=== PATIENT | male | born 1935 | race Caucasian/White ===

== ENCOUNTER 2018-04-06 04:11 | Emergency (ER) | payer OTHER ==
[~2018-04-06] VITALS: Ht 175.3 cm; Wt 88.9 kg
[~2018-04-06 04:11] MED LIST: CALCIUM 500 +1 EAC5 PO; COUMADIN5 M2 PO; GLUCOPHAGE500 M1 PO; LEXAPRO10 M1 PO; LIALDA1.2 G1 PO; LIPITOR10 M1 PO; LOSARTAN POTASS50 M1 PO; LUMIGAN2.5 ML OPH; MAGNESIUM400 M1 PO; OMEGA 3-6-9 11200 MG PO; PLOGLITAZONE PO
[2018-04-06 04:15] VITALS: BP 149/67
--- NOTE | 2018-04-06 04:16 | ED AMS/SEIZURE/WEAK/DIZZY ---
History of Present Illness General Chief Complaint: Neuro Symptoms/ Deficit Stated Complaint: PER DAUGHTER ? STROKE Source: patient, family Exam Limitations: clinical condition Vital Signs & Intake/Output Vital Signs & Intake/Output Vital Signs Date Time Temp Pulse Resp B/P B/P Pulse O2 O2 Flow FiO2 Mean Ox Delivery Rate 04/06 0435 98 Room Air 04/06 0415 97.5 60 18 149/67 100 Room Air Allergies Coded Allergies: NO KNOWN ALLERGIES (NO) (11/19/10) Reconcile Medications Atorvastatin Calcium (Lipitor) 10 MG TABLET 1 TAB PO DAILY CHOL (Reported) Bimatoprost (Lumigan) 0.01 % DROPS 1 GTT OPH QPM GLAUCOMA (Reported) Calcium Carbonate/Vitamin D3 (Calcium 500 + D Tablet) 500 MG-400 TABLET 1 TAB PO BID VITAMIN (Reported) Escitalopram Oxalate (Lexapro) 10 MG TABLET 1 TAB PO DAILY ANXIETY (Reported) Fish Oil/Borage/Flax/Om3,6,9#1 ([place] 3-6-9 1,200 MG Softgel) 1,200 MG CAPSULE 1 CAP PO DAILY VITAMIN (Reported) Losartan Potassium 50 MG TABLET 1 TAB PO DAILY HTN (Reported) Magnesium Oxide (Magnesium) 400 MG CAPSULE 1 CAP PO BID VITAMIN (Reported) Mesalamine (Lialda) 1.2 GRAM TABLET.DR 1 TAB PO DAILY STOMACH (Reported) Metformin Hydochloride (Glucophage) 500 MG TABLET 2 TAB PO BID DM (Reported) [PLOGLITAZONE] 15 MG PO DAILY DM (Reported) Warfarin Sodium (Coumadin) 5 MG TABLET 1 TAB PO DAILY THINNER (Reported) Triage Nurses Notes Reviewed? yes Onset: Abrupt Duration: hour(s): Timing: recent history Injury Environment: home Severity: moderate, severe No Modifying Factors: none Associated Symptoms: "I have a headache" HPI: 82 YO gentleman on coumadin presents with left sided headache and left arm weakness that began approximately 1 hour prior to presentation. He notes also feeling "weak all over." He notes no trauma, head injury. He is otherwise well. Past History Medical History Any Pertinent Medical History? see below for history Neurological: NONE EENT: glaucoma Cardiovascular: hypertension, hyperlipidemia Respiratory: NONE Gastrointestinal: Crohn's disease Hepatic: NONE Renal: NONE Musculoskeletal: NONE Psychiatric: depression Endocrine: diabetes Blood Disorders: DVT Surgical History Surgical History: right carotid endarterectomy Psychosocial History Who do you live with Spouse What is your primary language Spanish Family History Hx Contributory? No Review of Systems Review of Systems Constitutional: Reports: no symptoms. EENTM: Reports: no symptoms. Respiratory: Reports: no symptoms. Cardiovascular: Reports: no symptoms. GI: Reports: no symptoms. Genitourinary: Reports: no symptoms. Musculoskeletal: Reports: no symptoms. Skin: Reports: no symptoms. Neurological/Psychological: Reports: no symptoms. Hematologic/Endocrine: Reports: no symptoms. Immunologic/Allergic: Reports: no symptoms. All Other Systems: Reviewed and Negative Physical Exam Physical Exam General Appearance: well developed/nourished, lethargic, mild distress Head: atraumatic, normal appearance Eyes: Bilateral: normal appearance, PERRL, EOMI, other (pupils sluggish). Ears, Nose, Throat: normal pharynx, normal ENT inspection Neck: normal inspection, supple, full range of motion Respiratory: normal breath sounds, chest non-tender, no respiratory distress, quiet respiration Cardiovascular: regular rate/rhythm Gastrointestinal: normal bowel sounds, soft, non-tender Back: normal inspection, normal range of motion Extremities: normal range of motion Neurologic/Psych: oriented x 3, lethargic, but responds to questions appropriately, left arm/leg 4/5 strength, right arm/leg 4+/5 strength, dtr's 1/ 5 symmetric light touch intact throughout. Comments: erica coma scale of 14 Core Measures ACS in differential dx? No CVA/TIA Diagnosis No Sepsis Present: No Sepsis Focused Exam Completed? No Progress Differential Diagnosis: intracranial hemorrhage vs other. Plan of Care: Orders Procedure Date/time Status BLOOD PRODUCT PICKUP 04/06 443 Active Add-on Test (ER Only) 04/06 430 Active ETHANOL 04/06 425 Complete TYPE & SCREEN (NOT X-MATCH) 04/06 425 Complete PARTIAL THROMBOPLASTIN TIME 04/06 415 Complete PROTHROMBIN TIME 04/06 415 Complete COMPREHENSIVE METABOLIC PANEL 04/06 415 Complete CBC WITHOUT DIFFERENTIAL 04/06 415 Complete EKG 04/06 412 Active Laboratory Tests 04/06/18 042: Serum Alcohol Cancelled 04/06/18424: Anion Gap 9, Estimated GFR > 60, BUN/Creatinine Ratio 17.8, Glucose 119 H, Calcium 8.8, Total Bilirubin 0.4, AST 21, ALT 21, Alkaline Phosphatase 71, Total Protein 5.8 L, Albumin 3.3 L, Globulin 2.5, Albumin/Globulin Ratio 1.3, PT 37.9 H, INR 3.43 H, APTT 35, CBC w Diff MAN DIFF ORDERED, RBC 3.69 L, MCV 76.9 L, MCH 24.5 L, MCHC 31.8 L, RDW 19.3 H, MPV 8.1, Gran % 61.6, Lymphocytes % 21.4, Monocytes % 10.3 H, Eosinophils % 6.4 H, Basophils % 0.3, Absolute Granulocytes 3.6, Segmented Neutrophils 63, Absolute Lymphocytes 1.3, Lymphocytes 16 L, Monocytes 10 H, Absolute Monocytes 0.6, Eosinophils 8 H, Absolute Eosinophils 0.4, Absolute Basophils 0, Platelet Estimate ADEQUATE, Polychromasia 1+, Hypochromic-Microcytic 1+, Poikilocytosis 1+, Anisocytosis 1+, Microcytic Cells 1+, Ovalocytes 1+, Elliptocytes FEW, Fld Total RBCs Counted 100 , Serum Alcohol < 10.0 Diagnostic Imaging: Viewed by Me: CT Scan. Discussed w/RAD: CT Scan. Radiology Impression: PATIENT: ELPIDIO MUNIZ PRESENT AGE: 82 PATIENT ACCOUNT NO: [id number] : 36 LOCATION: [facility] ORDERING PHYSICIAN: Nas Schrader MD SERVICE DATE: 04/06/18 EXAM TYPE: CAT - CT HEAD WO IV CONTRAST EXAMINATION: CT HEAD WITHOUT CONTRAST CLINICAL INFORMATION: Mental status change, on Coumadin, question bleed COMPARISON: 11/23/2015 TECHNIQUE: Contiguous axial imaging was performed from the skull base to vertex without intravenous administration of contrast. DLP: 629.14 mGy-cm FINDINGS: There are bilateral subacute subdural hematomas, left- sided greater than right. Left-sided hematoma measures approximately 14 mm thickness, compared to approximately 6 mm in the right. There is resultant rightward midline shift by 5 mm. There is no evidence of acute intracranial hemorrhage or territorial infarction. Rojas to white matter differentiation is well preserved. No evidence of hydrocephalus. There is no abnormal attenuation within the brain parenchyma. The osseous structures and soft tissues are normal. The mastoid air cells and visualized portions of the paranasal sinuses are well aerated. IMPRESSION: Bilateral subacute subdural hematomas, measuring approximately 14 mm in thickness on the left and 6 mm in thickness on the right. Approximately 5 mm rightward midline shift. This critical result was discussed with Nas Schrader on 04/06/2018 4:31 AM, and it was ascertained that the content and urgency of the report was understood at the time of direct communication. DICTATED BY: Pito Donohue MD DATE/TIME DICTATED:04/06/18426 PLASTIC PANEL INSTALLER:BRENNA DATE/TIME TRANSCRIBED:04/06/18426 CONFIDENTIAL, DO NOT COPY WITHOUT APPROPRIATE AUTHORIZATION. <Electronically signed in Other Vendor System> SIGNED BY: Pito Donohue MD 04/06/18438 Initial ED EKG: junctional escape Departure Departure Disposition: OTHER [facility] (ACUTE) Condition: Stable Clinical Impression Primary Impression: Bilateral subdural hematomas Referrals: Roxana Puente MD (PCP/Family) Departure Forms: Customer Survey General Discharge Information Comments 04/06/18, 4:37am... pt placed on ct scan immediately upon arrival... discussed with [facility]... pt with subacute bilateral hematomas, left worse than right.... vitamin k ordered.... discussed with dr. serrano ([facility]) ... pt accepted for transfer. - - - [facility] not ready at time ambulance arrived for transfer Critical Care Note Critical Care Note Critical Care Time: 30-74 min
--- NOTE | 2018-04-06 04:39 | CT SCAN REPORT ---
EXAMINATION: CT HEAD WITHOUT CONTRAST CLINICAL INFORMATION: Mental status change, on Coumadin, question bleed COMPARISON: 11/23/2015 TECHNIQUE: Contiguous axial imaging was performed from the skull base to vertex without intravenous administration of contrast. DLP: 629.14 mGy-cm FINDINGS: There are bilateral subacute subdural hematomas, left-sided greater than right. Left-sided hematoma measures approximately 14 mm thickness, compared to approximately 6 mm in the right. There is resultant rightward midline shift by 5 mm. There is no evidence of acute intracranial hemorrhage or territorial infarction. Rojas to white matter differentiation is well preserved. No evidence of hydrocephalus. There is no abnormal attenuation within the brain parenchyma. The osseous structures and soft tissues are normal. The mastoid air cells and visualized portions of the paranasal sinuses are well aerated. IMPRESSION: Bilateral subacute subdural hematomas, measuring approximately 14 mm in thickness on the left and 6 mm in thickness on the right. Approximately 5 mm rightward midline shift. This critical result was discussed with Nas Schrader on 04/06/2018 4:31 AM, and it was ascertained that the content and urgency of the report was understood at the time of direct communication.
[2018-04-06 04:48] LABS: ABSOLUTE BASOPHIL COUNT 0 /CUMM (0.0-0.2); ABSOLUTE EOSINOPHIL COUNT 0.4 /CUMM (0.0-0.7); ABSOLUTE GRANULOCYTE CT 3.6 /CUMM (1.4-6.5); ABSOLUTE LYMPH COUNT 1.3 /CUMM (1.2-3.4); ABSOLUTE MONOCYTE COUNT 0.6 /CUMM (0.10-0.60); BASOPHIL % 0.3 % (0.0-2.0); EOSINOPHIL % 6.4 % (0-5); GRANULOCYTE % 61.6 % (42.2-75.2); HEMATOCRIT 28.4 % (42-52); MEAN CORPUSCULAR HGB 24.5 PG (27.0-31.0); MEAN CORPUSCULAR HGB CONC 31.8 G/DL (33.0-37.0); MEAN CORPUSCULAR VOLUME 76.9 FL (80.0-94.0); MEAN PLATELET VOLUME 8.1 FL (7.4-10.4); PLATELET COUNT 266 /CUMM (130-400); RBC DISTRIBUTION WIDTH 19.3 % (11.5-14.5); RED BLOOD CELL CT 3.69 /CUMM (4.70-6.10); WHITE BLOOD CELL COUNT 5.9 /CUMM (4.8-10.8)
[2018-04-06 04:52] LABS: PT 37.9 SEC (9.4-12.5); PTT 35 SEC (25-37)
== END 2018-04-06 05:10 | disposition short-term general hospital (02) ==
LOC: ERH 04:11
PROVIDERS: Pediatrics
DX: I62.00 Nontraumatic subdural hemorrhage, unspecified (principal); R51 Headache; R53.1 Weakness; I10 Essential (primary) hypertension; E11.9 Type 2 diabetes mellitus without complications; K50.90 Crohn's disease, unspecified, without complications; Z79.01 Long term (current) use of anticoagulants
CPT/HCPCS: 93005; 93010; 96372; 99291; G0480